=== PATIENT | male | born 1980 ===

== ENCOUNTER 2022-02-25 21:04 | Emergency (ER) | payer BC ==
[2022-02-25] MEDS ORDERED: Fluorescein Opthalmic Strip ONE (22:09)
[2022-02-25] MEDS ORDERED: Proparacaine 0.5% Opth 15 ML BOT ONE (22:10)
== END 2022-02-25 23:13 | disposition home or self-care (01) ==
LOC: ERS 21:04
DX: H16.001 Unspecified corneal ulcer, right eye (principal); F17.200 Nicotine dependence, unspecified, uncomplicated
CPT/HCPCS: 99283